=== PATIENT | male | born 1965 | race Caucasian/White ===

== ENCOUNTER 2017-03-02 02:42 | Observation (INO) | payer SELFPAY ==
[2017-03-02 02:42] VITALS: BMI 20.9
[2017-03-02 03:02] VITALS: BP 109/75; PULSE 90; RESP 16; TEMP 98; O2SAT 99
--- NOTE | 2017-03-02 03:30 | ED PDOC ---
HPI: Psych/Substance Abuse Time Seen by Provider: 03/02/17 02:49 Chief Complaint (Nursing): Alcohol Ingestion Chief Complaint (Provider): Alcohol Intoxication ED Caveat: Intoxicated History Per: Patient History/Exam Limitations: intoxication Onset/Duration Of Symptoms: Days (x 1) Current Symptoms Are (Timing): Still Present Modifying Factor(s): Alcohol Additional History Per: EMS Additional Complaint(s): 51 y/o male was brought the ED by EMS for alcohol intoxication. Patient was found publicly intoxicated. Denies any physical complaints. Of note: patient has a left periorbital ecchymosis that he was seen for and received full workup including a CAT scan in a recent visit. PMD: Unknown Past Medical History Reviewed: Historical Data, Nursing Documentation, Vital Signs, Unable To Obtain Vital Signs: Last Vital Signs Temp 98.0 F 03/02/17 02:54 Pulse 90 03/02/17 02:54 Resp 16 03/02/17 02:54 BP 109/75 03/02/17 02:54 Pulse Ox 99 03/02/17 02:54 - Medical History PMH: Seizures ( PER EMS) Denies: HIV, Chronic Kidney Disease - Family History Family History: States: Unknown Family Hx - Immunization History Hx Tetanus Toxoid Vaccination: No Hx Influenza Vaccination: No Hx Pneumococcal Vaccination: No - Home Medications Home Medications: Ambulatory Orders Medication Instructions Recorded levETIRAcetam [Keppra] 500 mg PO BID #60 tab 06/22/15 No Known Home Med 02/26/17 - Allergies Allergies/Adverse Reactions: Allergies Allergy/AdvReac Type Severity Reaction Status Date / Time No Known Allergies Allergy Verified 10/14/16 20:26 Review of Systems Review Of Systems: ROS cannot be obtained secondary to pt's inabilty to answer questions. Physical Exam - Reviewed Nursing Documentation Reviewed: Yes Vital Signs Reviewed: Yes - Physical Exam Appears: Positive for: Non-toxic, No Acute Distress Head Exam: Positive for: ATRAUMATIC, NORMAL INSPECTION, NORMOCEPHALIC Skin: Positive for: Normal Color, Warm, Dry Eye Exam: Positive for: Normal appearance, EOMI, PERRL, Other (left periorbital ecchymosis, old per patient and records) ENT: Positive for: Normal ENT Inspection Neck: Positive for: Normal, Painless ROM Cardiovascular/Chest: Positive for: Regular Rate, Rhythm. Negative for: Murmur Respiratory: Positive for: Normal Breath Sounds. Negative for: Respiratory Distress Gastrointestinal/Abdominal: Positive for: Normal Exam, Bowel Sounds, Soft. Negative for: Tenderness Back: Positive for: Normal Inspection. Negative for: L CVA Tenderness, R CVA Tenderness, Vertebral Tenderness Extremity: Positive for: Normal ROM. Negative for: Pedal Edema, Deformity Neurologic/Psych: Positive for: Alert (Awake), Gait (Unsteady), Other (Slurred speech) - ECG O2 Sat by Pulse Oximetry: 99 (RA) Pulse Ox Interpretation: Normal Medical Decision Making Medical Decision Making: Time: 3:11 Initial Impression: 51 y/o male with alcohol intoxication Initial Plan: --Alcohol Serum Stat --Accucheck --Pending sobriety --Patient admitted to ED OBS for alcohol intoxication *Check ED OBS for further documentation Scribe Attestation: Documented by Adalberto Broussard, acting as a scribe for Jose David Walls MD Provider Scribe Attestation: All medical record entries made by the Scribe were at my direction and personally dictated by me. I have reviewed the chart and agree that the record accurately reflects my personal performance of the history, physical exam, medical decision making, and the department course for this patient. I have also personally directed, reviewed, and agree with the discharge instructions and disposition. ED OBSERVATION Date of observation admission: 03/02/17 Time of observation admission: 03:10 - Observation admission statement Patient is being placed in observation because:: Alcohol intoxication - Goals of Observation Goals of observation are:: Clinical sobriety - Progress Note Progress Note: Time: 3:10 --Patient is resting. Vitals are stable. Time: 4:40 --Patient is resting comfortably with stable vitals. Time: 6:10 --Patient is currently resting and vitals are stable. Time: 6:30 --Patient is alert, awake, oriented x3 with a steady gait and fluent speech. --Patient is medically stable for discharge home Clinical Impression: Alcohol Intoxication Disposition - Clinical Impression Clinical Impression: Alcohol abuse with intoxication - Patient ED Disposition Is Patient to be Admitted: No Counseled Patient/Family Regarding: Diagnosis, Need For Followup - Disposition Disposition: Routine/Home Disposition Time: 03:10 Condition: STABLE
== END 2017-03-02 06:38 | disposition home or self-care (01) ==
LOC: H.ER 02:42 → H.EROBSV 04:49
PROVIDERS: ADMIT Emergency Medicine; ATTEND Emergency Medicine
DX: F10.129 Alcohol abuse with intoxication, unspecified (principal); S00.12XA Contusion of left eyelid and periocular area, initial encounter; Z79.899 Other long term (current) drug therapy; R56.9 Unspecified convulsions; Y90.8 Blood alcohol level of 240 mg/100 ml or more
CPT/HCPCS: 82948; 99282; G0378; G0480

== ENCOUNTER 2017-05-30 17:48 | Emergency (ER) | payer MEDICAID, OTHER ==
[2017-05-30 17:48] VITALS: BMI 20.9
--- NOTE | 2017-05-30 18:28 | ED PDOC ---
HPI: Psych/Substance Abuse Time Seen by Provider: 05/30/17 18:00 Chief Complaint (Nursing): Alcohol Ingestion Chief Complaint (Provider): Alcohol Ingestion History Per: EMS History/Exam Limitations: intoxication Onset/Duration Of Symptoms: Days (x1) Current Symptoms Are (Timing): Still Present Additional Complaint(s): Santy Jiménez is a 52 year old male who was brought to the ED by EMS due to alcohol intoxication. According to EMS, [place] Patient is known to EMS and to ED for alcohol abuse and homelessness. Patient is intoxicated and unable to give any history. Past Medical History Reviewed: Historical Data, Nursing Documentation, Vital Signs Vital Signs: Last Vital Signs Temp 97.8 F 05/30/17 17:53 Pulse 98 H 05/30/17 17:53 Resp 16 05/30/17 17:53 BP 107/70 05/30/17 17:53 Pulse Ox 99 05/30/17 17:53 - Medical History PMH: Seizures ( PER EMS) Denies: HIV, Chronic Kidney Disease - Family History Family History: States: Unknown Family Hx - Immunization History Hx Tetanus Toxoid Vaccination: No Hx Influenza Vaccination: No Hx Pneumococcal Vaccination: No - Home Medications Home Medications: Ambulatory Orders Medication Instructions Recorded levETIRAcetam [Keppra] 500 mg PO BID #60 tab 06/22/15 No Known Home Med 02/26/17 - Allergies Allergies/Adverse Reactions: Allergies Allergy/AdvReac Type Severity Reaction Status Date / Time No Known Allergies Allergy Verified 10/14/16 20:26 Review of Systems Review Of Systems: ROS cannot be obtained secondary to pt's inabilty to answer questions. (alcohol intoxication) Physical Exam - Reviewed Nursing Documentation Reviewed: Yes Vital Signs Reviewed: Yes - Physical Exam Appears: Positive for: No Acute Distress (dissheveled and unkempt) Head Exam: Positive for: ATRAUMATIC, NORMOCEPHALIC Skin: Positive for: Warm, Dry Eye Exam: Positive for: PERRL, Conjunctival injection ENT: Positive for: Pharynx Is (clear) Neck: Positive for: Painless ROM, Supple Cardiovascular/Chest: Positive for: Regular Rate, Rhythm, Chest Non Tender. Negative for: Murmur Respiratory: Positive for: Normal Breath Sounds. Negative for: Wheezing Gastrointestinal/Abdominal: Positive for: Soft. Negative for: Tenderness Back: Positive for: Normal Inspection. Negative for: Decreased ROM Extremity: Positive for: Normal ROM, Pedal Edema (bilateral ankle and feet). Negative for: Deformity Lymphatic: Negative for: Adenopathy Neurologic/Psych: Positive for: Other (deeply sleepy but arousable to painful stimuli). Negative for: Alert, Oriented, Motor/Sensory Deficits - ECG O2 Sat by Pulse Oximetry: 99 (RA) Pulse Ox Interpretation: Normal Medical Decision Making Medical Decision Making: Time: 18:03 Initial Impression: Alcohol intoxication --Alcohol serum --Glucose, blood, POC --Pulse OX continuous --Reevaluation Scribe Attestation: Documented by Thomas Pierre acting as a scribe for Agueda Conde MD. Scribe Attestation: All medical record entries made by the Scribe were at my direction and personally dictated by me. I have reviewed the chart and agree that the record accurately reflects my personal performance of the history, physical exam, medical decision making, and the department course for this patient. I have also personally directed, reviewed, and agree with the discharge instructions and disposition. Disposition - Clinical Impression Clinical Impression: Alcohol use - Disposition Disposition: Transfer of Care Disposition Time: 00:00 Condition: STABLE Print Language: CHINESE Patient Signed Over To: Austen Barton Handoff Comments: Pending Sobriety and final ER disposition
[2017-05-30 19:34] VITALS: RESP 18
--- NOTE | 2017-05-31 01:25 | ED PDOC ---
- ECG O2 Sat by Pulse Oximetry: 95 Medical Decision Making Medical Decision Making: Time: 00:00 --Patient was endorsed to provider by Dr. Agueda Conde. Pending clinical sobriety. Time: 516 --Upon provider reevaluation, patient is awake, alert, medically stable and requires no further treatment in the ED at this time. Patient will be discharged home. Counseling was provided and all questions were answered regarding diagnosis. There is agreement to discharge plan. Return if symptoms persist or worsen. Clinical Impression: Alcohol use Scribe Attestation: Documented by Mamta Andres, acting as a scribe for Austen Barton MD. Provider Scribe Attestation: All medical record entries made by the Scribe were at my direction and personally dictated by me. I have reviewed the chart and agree that the record accurately reflects my personal performance of the history, physical exam, medical decision making, and the department course for this patient. I have also personally directed, reviewed, and agree with the discharge instructions and disposition. Disposition Counseled Patient/Family Regarding: Diagnosis - Clinical Impression Clinical Impression: Alcohol use - POA Present On Arrival: None - Disposition Referrals: Alcoholics Anonymous [Outside] Disposition: Routine/Home Disposition Time: 05:17 Condition: STABLE Instructions: Alcohol Intoxication (DC) Forms: [employer] (Croatian) Print Language: IRAQI
[2017-05-31 05:17] VITALS: BP 105/60; PULSE 97; TEMP 98.5
[2017-05-31 16:20] VITALS: O2SAT 99
== END 2017-05-31 05:30 | disposition home or self-care (01) ==
LOC: H.ER 17:48
DX: F10.129 Alcohol abuse with intoxication, unspecified (principal); Z59.0 Homelessness

== ENCOUNTER 2017-07-25 08:21 | Inpatient (IN) | payer OTHER ==
[2017-07-25 08:22] VITALS: BMI 20.9
[2017-07-25 09:14] LABS: BASO # 0.2 K/uL (0.0-0.2); BASO % 2.8 % (0.0-2.0); EOS # 0.9 K/uL (0.0-0.7); EOS % 14.8 % (0.0-4.0); HEMOGLOBIN 13.7 g/dL (12.0-18.0); LYMPH # 1.3 K/uL (1.0-4.3); LYMPH % 21.1 % (20.0-40.0); MEAN CELL VOLUME 88.2 fl (80.0-94.0); MEAN CORPUSCULAR HEMOGLOBIN 29.9 pg (27.0-31.0); MEAN CORPUSCULAR HGB CONC 33.9 g/dL (33.0-37.0); MEAN PLATELET VOLUME 8.1 fl (7.2-11.7); MONO # 0.4 K/uL (0.0-0.8); MONO % 6.8 % (0.0-10.0); NEUT # 3.3 K/uL (1.8-7.0); NEUT % 54.5 % (50.0-75.0); NRBC % 0.2 % (0.0-0.0); RBC 4.58 Mil/uL (4.40-5.90); RED CELL DISTRIBUTION WIDTH 16.3 % (11.5-14.5); WHITE BLOOD COUNT 6.1 K/uL (4.8-10.8)
--- NOTE | 2017-07-25 09:17 | ED PDOC ---
HPI: Seizure Time Seen by Provider: 07/25/17 08:31 Chief Complaint (Nursing): Seizure Chief Complaint (Provider): Seizure History Per: Patient, EMS History/Exam Limitations: no limitations Recent Seizure Activity Began: Unknown Length Of Seizures (Duration): Unknown Additional Complaint(s): Santy Jiménez is a 52 year old male, with a past medical history of alcohol withdrawal seizures, who was brought to the emergency department via EMS for seizure onset prior to arrival. Per EMS, they were called by roommate who reported he was seizing. Patient was found in a shed behind an abandoned house. He denies any medical complaints. PMD: None provided. Past Medical History Reviewed: Historical Data, Nursing Documentation, Vital Signs Vital Signs: Last Vital Signs Temp 98.2 F 07/25/17 11:41 Pulse 98 H 07/25/17 11:41 Resp 16 07/25/17 11:41 BP 121/73 07/25/17 11:41 Pulse Ox 96 07/25/17 11:41 - Medical History PMH: Seizures ( PER EMS) Denies: HIV, Chronic Kidney Disease - Surgical History Surgical History: No Surg Hx - Family History Family History: States: Unknown Family Hx - Social History Current smoker - smoking cessation education provided: Yes (light smoker <10 cigarettes daily) Alcohol: > 2 Drinks/Day Drugs: Denies - Immunization History Hx Tetanus Toxoid Vaccination: No Hx Influenza Vaccination: No Hx Pneumococcal Vaccination: No - Home Medications Home Medications: Ambulatory Orders Medication Instructions Recorded levETIRAcetam [Keppra] 500 mg PO BID #60 tab 06/22/15 No Known Home Med 02/26/17 - Allergies Allergies/Adverse Reactions: Allergies Allergy/AdvReac Type Severity Reaction Status Date / Time No Known Allergies Allergy Verified 10/14/16 20:26 Review of Systems ROS Statement: Except As Marked, All Systems Reviewed And Found Negative Neurological: Positive for: Seizures Physical Exam - Reviewed Nursing Documentation Reviewed: Yes Vital Signs Reviewed: Yes - Physical Exam Appears: Positive for: Non-toxic Head Exam: Positive for: ATRAUMATIC, NORMAL INSPECTION, NORMOCEPHALIC Skin: Positive for: Normal Color, Warm, Dry Eye Exam: Positive for: Normal appearance, EOMI, PERRL Neck: Positive for: Painless ROM, Supple Cardiovascular/Chest: Positive for: Regular Rate, Rhythm. Negative for: Murmur Respiratory: Positive for: Normal Breath Sounds. Negative for: Respiratory Distress Gastrointestinal/Abdominal: Positive for: Normal Exam, Soft. Negative for: Tenderness, Guarding, Rebound Back: Positive for: Normal Inspection. Negative for: L CVA Tenderness, R CVA Tenderness, Vertebral Tenderness Extremity: Positive for: Normal ROM. Negative for: Deformity, Swelling Neurologic/Psych: Positive for: Alert, Oriented (x3). Negative for: Motor/ Sensory Deficits - Laboratory Results Result Diagrams: 07/25/17 08:50 07/25/17 08:50 - ECG Interpretation Of ECG: ST @ 104, no ST-T changes. O2 Sat by Pulse Oximetry: 95 (RA) Pulse Ox Interpretation: Normal - Critical Care Total Time (In Min): 45 Medical Decision Making Medical Decision Making: Initial Impression: Seizure Initial Plan: --EKG --Alcohol serum --CMP --CBC w/ differential --Banana Bag MVI/VITB --Reevaluation 09:10 --Called to bedside, patient actively seizing, placed on breather and gave Ativan 2mg. Scribe Attestation: Documented by Naren Mcpherson, acting as a scribe for Humera Gotti MD Provider Scribe Attestation: All medical record entries made by the Scribe were at my direction and personally dictated by me. I have reviewed the chart and agree that the record accurately reflects my personal performance of the history, physical exam, medical decision making, and the department course for this patient. I have also personally directed, reviewed, and agree with the discharge instructions and disposition. Disposition - Clinical Impression Clinical Impression: Alcohol withdrawal seizure - Patient ED Disposition Is Patient to be Admitted: Yes - Disposition Referrals: Provider CARRIE, [Primary Care Provider] - Disposition Time: 11:46 Condition: STABLE Forms: [employer] (Bengali) - Pt Status Changed To: Hospital Disposition Of: Inpatient - Admit Certification Admit to Inpatient:: After my assessment, the patient will require hospitalization for at least two midnights. This is because of the severity of symptoms shown, intensity of services needed, and/or the medical risk in this patient being treated as an outpatient. - POA Present On Arrival: None
[2017-07-25 09:21] LABS: ALB/GLOB RATIO 1.2 (1.0-2.1); ALBUMIN 4.3 g/dL (3.5-5.0); ALT/SGPT 138 U/L (21-72); AST/SGOT 132 U/L (17-59); BLOOD UREA NITROGEN 11 mg/dl (9-20); CALCIUM 9.4 mg/dL (8.4-10.2); GFR AFRICAN-AMERICAN > 60; GFR NON-AFRICAN AMERICAN > 60
[2017-07-25] MEDS ORDERED: Multivitamin (MVI) 10 ML, Thiamine 100 MG, Folic Acid 1 MG in Dextrose 5%/0.45% NS 1,00... IV ONE (09:30)
--- NOTE | 2017-07-25 12:24 | CT ---
PROCEDURE: CT HEAD WITHOUT CONTRAST. HISTORY: Seizure COMPARISON: None available. TECHNIQUE: Axial computed tomography images were obtained through the head/brain without intravenous contrast. Radiation dose: Total exam DLP = 1277.5 mGy-cm. This CT exam was performed using one or more of the following dose reduction techniques: Automated exposure control, adjustment of the mA and/or kV according to patient size, and/or use of iterative reconstruction technique. FINDINGS: HEMORRHAGE: No acute parenchymal, subarachnoid or extra-axial hemorrhage. BRAIN: No evidence of large acute infarct. No obvious parenchymal nor extra-axial mass or collection identified on this noncontrast study. Suspect minimal chronic periventricular white matter ischemic changes Mild generalized volume loss. VENTRICLES: No obstructive hydrocephalus. CALVARIUM: No obvious acute calvarial fractures. Re- demonstrated are soft tissue density changes in the right parietal scalp with some overlying skin thickening possibly due to chronic scarring however concomitant mild focal area of scalp swelling not excluded. Questionable minimal left keyposterior superior parietal scalp swelling. PARANASAL SINUSES: Mild mucoperiosteal inflammatory changes seen within maxillary antra. MASTOID AIR CELLS: Unremarkable as visualized. No inflammatory changes. OTHER FINDINGS: None. IMPRESSION: No acute intracranial hemorrhage. Suspect minimal chronic periventricular white matter ischemic changes. Mild generalized volume loss. Re- demonstrated are soft tissue density changes in the right parietal scalp with some overlying skin thickening possibly due to chronic scarring however concomitant mild focal area of scalp swelling not excluded. Questionable minimal left keyposterior superior parietal scalp swelling.
--- NOTE | 2017-07-25 13:34 | RAD ---
HISTORY: Seizure COMPARISON: 09/08/2014 FINDINGS: LUNGS: No active pulmonary disease. PLEURA: No significant pleural effusion identified, no pneumothorax apparent. CARDIOVASCULAR: No radiographic findings to suggest acute or significant cardiovascular disease. OSSEOUS STRUCTURES: No significant abnormalities. VISUALIZED UPPER ABDOMEN: Normal. OTHER FINDINGS: None. IMPRESSION: No active disease. No significant interval change compared to the prior examination(s).
[2017-07-25 15:33] LABS: BARBITURATES, UR NEGATIVE (NEGATIVE); BENZODIAZEPINES, UR NEGATIVE (NEGATIVE); OPIATES, UR NEGATIVE (NEGATIVE); PHENCYCLIDINE, UR NEGATIVE (NEGATIVE)
[2017-07-25] MEDS ORDERED: Pneumococcal 23-Valent Vaccine IM ONE (16:14)
[2017-07-25] MEDS ORDERED: Influenza Vaccine 18yr & older 0.5 ML/45 MCG SYR IM ONE (16:16)
[2017-07-25] MEDS ORDERED: Permethrin 5% CREAM TOP ONE (20:52)
[2017-07-26 06:25] LABS: ALB/GLOB RATIO 1.3 (1.0-2.1); ALBUMIN 4.2 g/dL (3.5-5.0); ALT/SGPT 116 U/L (21-72); AST/SGOT 91 U/L (17-59); BLOOD UREA NITROGEN 14 mg/dl (9-20); CALCIUM 9.3 mg/dL (8.4-10.2); GFR AFRICAN-AMERICAN > 60; GFR NON-AFRICAN AMERICAN > 60
[2017-07-26] MEDS ORDERED: Potassium Chloride 20 mEq ER Tab PO ONE (08:57)
[2017-07-26] MEDS ORDERED: Permethrin 5% CREAM TOP ONE (09:20)
--- NOTE | 2017-07-26 12:50 | CP.PCM.CON ---
History of Present Illness - History of Present Illness History of Present Illness: Mr. Jiménez is a 52-year-old man, who reports that he was recently in [facility] after having a seizure. He has had 3 other seizures in his life. Last night, he states that he was sleeping and woke up to find people taking him in the EMS vehicle. He was witnessed having a seizure. According to the patient, he drinks several times a week, but denies heavy alcohol use. He denies drinking daily. However, there is report of alcohol withdrawal seizures in the past. The patient denied tongue biting, injury, urinary/bowel incontinence with this episode. Review of Systems - Review of Systems All systems: reviewed and no additional remarkable complaints except Past Patient History - Infectious Disease Hx of Infectious Diseases: None - Past Medical History & Family History Past Medical History?: Yes - Past Social History Smoking Status: Heavy Smoker > 10 Cigarettes Daily - CARDIAC Hx Cardiac Disorders: No - PULMONARY Hx Respiratory Disorders: No - NEUROLOGICAL Hx Neurological Disorder: Yes Hx Seizures: Yes - HEENT Hx HEENT Problems: No - RENAL Hx Chronic Kidney Disease: No - ENDOCRINE/METABOLIC Hx Endocrine Disorders: No - HEMATOLOGICAL/ONCOLOGICAL Hx Blood Disorders: No Hx AIDS: No Hx Human Immunodeficiency Virus (HIV): No - INTEGUMENTARY Hx Dermatological Problems: No - MUSCULOSKELETAL/RHEUMATOLOGICAL Hx Musculoskeletal Disorders: No Hx Falls: Yes - GASTROINTESTINAL Hx Gastrointestinal Disorders: No - GENITOURINARY/GYNECOLOGICAL Hx Genitourinary Disorders: No - PSYCHIATRIC Hx Psychophysiologic Disorder: No Hx Substance Use: No - SURGICAL HISTORY Hx Surgeries: No - ANESTHESIA Hx Anesthesia: Yes Hx Anesthesia Reactions: No Hx Malignant Hyperthermia: No Has any member of the family had a problem w/ anesthesia?: No Meds Allergies/Adverse Reactions: Allergies Allergy/AdvReac Type Severity Reaction Status Date / Time No Known Allergies Allergy Verified 10/14/16 20:26 - Medications Medications: Current Medications Chlordiazepoxide (Librium) 5 mg PO Q8 [facility] Last Admin: 07/26/17 09:44 Dose: 5 mg Folic Acid (Folic Acid) 1 mg PO DAILY [facility] Last Admin: 07/26/17 09:44 Dose: 1 mg Thiamine HCl (Vitamin B1 Tab) 100 mg PO DAILY [facility] Last Admin: 07/26/17 09:44 Dose: 100 mg Physical Exam - Constitutional Appears: Well - Head Exam Head Exam: ATRAUMATIC, NORMAL INSPECTION, NORMOCEPHALIC - Eye Exam Eye Exam: EOMI, Normal appearance, PERRL - ENT Exam ENT Exam: Mucous Membranes Moist, Normal Exam - Neck Exam Neck exam: Positive for: Normal Inspection - Respiratory Exam Respiratory Exam: Clear to Auscultation Bilateral, NORMAL BREATHING PATTERN - Cardiovascular Exam Cardiovascular Exam: REGULAR RHYTHM, +S1, +S2 - Rectal Exam Rectal Exam: Deferred - Extremities Exam Extremities exam: Positive for: normal inspection - Neurological Exam Neurological exam: Alert, CN II-XII Intact, Normal Gait, Oriented x3, Reflexes Normal - Psychiatric Exam Psychiatric exam: Normal Affect, Normal Mood - Skin Skin Exam: Dry, Intact, Normal Color, Warm Results - Vital Signs Recent Vital Signs: Last Vital Signs Temp 98.4 F 07/26/17 12:30 Pulse 76 07/26/17 12:30 Resp 18 07/26/17 12:30 BP 102/66 07/26/17 12:30 Pulse Ox 96 07/26/17 12:30 - Labs Result Diagrams: 07/25/17 08:50 07/26/17 04:31 Labs: Laboratory Results - last 24 hr 07/25/17 07/26/17 14:57 04:31 Sodium 137 Potassium 3.2 L Chloride 98 Carbon Dioxide 25 Anion Gap 17 BUN 14 Creatinine 0.6 L Est GFR ( Amer) > 60 Est GFR (Non-Af Amer) > 60 Random Glucose 81 Calcium 9.3 Total Bilirubin 1.2 AST 91 H D ALT 116 H Alkaline Phosphatase 74 Total Protein 7.5 Albumin 4.2 Globulin 3.3 Albumin/Globulin Ratio 1.3 Urine Opiates Screen Negative Urine Methadone Screen Negative Ur Barbiturates Screen Negative Ur Phencyclidine Scrn Negative Ur Amphetamines Screen Negative U Benzodiazepines Scrn Negative U Oth Cocaine Metabols Negative U Cannabinoids Screen Negative - Impressions Impression: Scalp swelling on CT head on the right. Assessment & Plan (1) Seizure disorder Assessment and Plan: The patient has now had 4 lifetime seizures and there is concern with high degree of likelihood that he will have a 5th, if he is not on seizure prophylaxis. Therefor, I recommend starting Keppra 500 mg BID. He was unable to obtain the MRI due to head lice. An EEG is recommended for further evaluation and may be done as an outpatient. Thank you. Status: Acute
--- NOTE | 2017-07-26 16:39 | CP.PCM.HP ---
History of Present Illness - History of Present Illness History of Present Illness: CC: Seizure Disorder. 52 y/o M, admitted to [facility] due to an episode of Seizure Disorder prior to arrival to ED. PMHx of alcohol withdrawal seizure, Homeless, as per roommate, he witnessed Pt was seizing and he called EMS who found Pt in an abandoned house and was brought him to ER, [facility], [place] for evaluation and Tx. Unknown length of seizure activity. Pt denied any injury. While in the ER, Pt had another seizure activity, with foamy mouth, unresponsive /diaphoretic. Worsening symptoms: Multiple admissions to hospital for Hx of alcohol abuse. Not in compliance the the seizure medication. Also was found with Body Lice in head and all the bed sheet, with malodor. Pt was placed in Isolation as per protocol. Aggravated factor: On arrival to the ED, Pt did not remember Hx of illness. CT Head: No acute intracranial hemorrhage. Mild focal area of scalp swelling, questionable minimal left thompson posterior superior parietal scalp swelling. CXR: No active disease. . Present on Admission - Present on Admission Any Indicators Present on Admission: No Review of Systems - Review of Systems All systems: reviewed and no additional remarkable complaints except (HPI) - Cardiovascular Cardiovascular: Other (negative) Past Patient History - Infectious Disease Hx of Infectious Diseases: None - Past Medical History & Family History Past Medical History?: Yes Pertinent Family History: Unknown - Past Social History Smoking Status: Heavy Smoker > 10 Cigarettes Daily Alcohol: > 2 Drinks/Day Drugs: Denies - CARDIAC Hx Cardiac Disorders: No - PULMONARY Hx Respiratory Disorders: No - NEUROLOGICAL Hx Neurological Disorder: Yes Hx Seizures: Yes - HEENT Hx HEENT Problems: No - RENAL Hx Chronic Kidney Disease: No - ENDOCRINE/METABOLIC Hx Endocrine Disorders: No - HEMATOLOGICAL/ONCOLOGICAL Hx Blood Disorders: No Hx AIDS: No Hx Human Immunodeficiency Virus (HIV): No - INTEGUMENTARY Hx Dermatological Problems: No - MUSCULOSKELETAL/RHEUMATOLOGICAL Hx Musculoskeletal Disorders: No Hx Falls: Yes - GASTROINTESTINAL Hx Gastrointestinal Disorders: No - GENITOURINARY/GYNECOLOGICAL Hx Genitourinary Disorders: No - PSYCHIATRIC Hx Psychophysiologic Disorder: No Hx Substance Use: No - SURGICAL HISTORY Hx Surgeries: No - ANESTHESIA Hx Anesthesia: Yes Hx Anesthesia Reactions: No Hx Malignant Hyperthermia: No Has any member of the family had a problem w/ anesthesia?: No Meds Home Medications: Home Medication List Medication Instructions Recorded Confirmed Type Folic Acid 1 mg PO DAILY #30 tab 07/29/17 Rx Meclizine [Meclizine*] 25 mg PO Q12 #60 tab 07/29/17 Rx Thiamine [Vitamin B1 Tab] 100 mg PO DAILY #30 tab 07/29/17 Rx levETIRAcetam [Keppra] 500 mg PO BID #60 tab 07/29/17 Rx Allergies/Adverse Reactions: Allergies Allergy/AdvReac Type Severity Reaction Status Date / Time No Known Allergies Allergy Verified 10/14/16 20:26 Physical Exam - Constitutional Appears: No Acute Distress - Head Exam Head Exam: NORMAL INSPECTION - Eye Exam Eye Exam: PERRL - ENT Exam ENT Exam: Normal Exam - Neck Exam Neck exam: Positive for: Normal Inspection - Respiratory Exam Respiratory Exam: NORMAL BREATHING PATTERN - Cardiovascular Exam Cardiovascular Exam: REGULAR RHYTHM - GI/Abdominal Exam GI & Abdominal Exam: Normal Bowel Sounds, Soft - Back Exam Back exam: NORMAL INSPECTION - Neurological Exam Neurological exam: Alert, Oriented x3 - Psychiatric Exam Psychiatric exam: Anxious - Skin Skin Exam: Warm Results - Vital Signs Recent Vital Signs: Last Vital Signs Temp 98.4 F 07/26/17 12:30 Pulse 76 07/26/17 12:30 Resp 18 07/26/17 12:30 BP 102/66 07/26/17 12:30 Pulse Ox 96 07/26/17 12:30 reviewed Jimena - Labs Result Diagrams: 07/29/17 04:25 07/29/17 04:25 Labs: Laboratory Results - last 24 hr 07/26/17 04:31 Sodium 137 Potassium 3.2 L Chloride 98 Carbon Dioxide 25 Anion Gap 17 BUN 14 Creatinine 0.6 L Est GFR ( Amer) > 60 Est GFR (Non-Af Amer) > 60 Random Glucose 81 Calcium 9.3 Total Bilirubin 1.2 AST 91 H D ALT 116 H Alkaline Phosphatase 74 Total Protein 7.5 Albumin 4.2 Globulin 3.3 Albumin/Globulin Ratio 1.3 reviewed JRadhaPRadha - Imaging and Cardiology Chest x-ray Status: Report reviewed by me (Jimena) Assessment & Plan (1) Seizure disorder Status: Acute Priority: High (2) History of ETOH abuse Status: Chronic Priority: High (3) Lice infestation Status: Acute - Assessment and Plan (Free Text) Plan: F/U Brain MRI was not done due to head lice, f/u Head MRA, Neck MRA, Continue Kepra, Librium, Folic Acid,Permethrim , PT eval, Neurology consult apreciated. - Date & Time Date: 07/26/17 Time: 12:30
--- NOTE | 2017-07-26 19:19 | CARD ---
APPROVED REPORT EKG Measurement Heart [id number] VT [id number] [id number] <Conclusion> Sinus tachycardia Otherwise normal ECG
[2017-07-27 07:09] LABS: BLOOD UREA NITROGEN 13 mg/dl (9-20); CALCIUM 9.4 mg/dL (8.4-10.2); GFR AFRICAN-AMERICAN > 60; GFR NON-AFRICAN AMERICAN > 60
--- NOTE | 2017-07-27 12:13 | MRI ---
PROCEDURE: MRI BRAIN WITHOUT CONTRAST HISTORY: seizure COMPARISON: Comparison is made with the previous study dated 09/22/2013 TECHNIQUE: Multiplanar, multisequence MR images of the brain were obtained without intravenous contrast enhancement. FINDINGS: HEMORRHAGE: None DWI: No evidence of an acute or early subacute infarction. BRAIN PARENCHYMA: No mass effect or edema. Slzf-of-[id number] atrophy is noted. VENTRICLES: Unremarkable. No hydrocephalus. CRANIUM: Unremarkable. ORBITS: Grossly unremarkable. PARANASAL SINUSES/MASTOIDS: Clear VASCULAR SYSTEM: Skull base flow voids intact. OTHER FINDINGS: None. IMPRESSION: There is no evidence of acute pathology or os mass lesion in the brain. Nzdl-[id number] atrophy.
--- NOTE | 2017-07-27 14:51 | MRI ---
PROCEDURE: Magnetic Resonance Angiography Brain HISTORY: seizure COMPARISON: None available. TECHNIQUE: 3D time of flight MR angiography of the intracranial arteries was performed. Rotating maximum intensity projection images were generated. FINDINGS: INTERNAL CAROTID ARTERIES: Unremarkable. The skull base, petrous, cavernous and supraclinoid segments are bilaterally widely patient. ANTERIOR CEREBRAL ARTERIES: Absence of the right A1 is noted. Both anterior cerebral arteries supplied by left circulation through left A1. Smaller distal branches unremarkable, as visualized. MIDDLE CEREBRAL ARTERIES: Unremarkable. M1 and M2 segments are widely patent. Perisylvian branches grossly symmetric. POSTERIOR CIRCULATION: Basilar Artery: Unremarkable. Distal Vertebral Arteries: Unremarkable. Posterior Cerebral Arteries: Unremarkable. Posterior Inferior Cerebellar Arteries: Unremarkable. ANEURYSM/ VASCULAR MALFORMATIONS: None. OTHER FINDINGS: None. IMPRESSION: Absence of the right A1. Otherwise unremarkable MRA of the brain.
--- NOTE | 2017-07-27 15:38 | CP.PCM.PN ---
Subjective - Date & Time of Evaluation Date of Evaluation: 07/27/17 Time of Evaluation: 15:10 - Subjective Subjective: F/U Seizure Disorder. complains of dizziness on and off , no seizures Objective - Vital Signs/Intake and Output Vital Signs (last 24 hours): Temp Pulse Resp BP Pulse Ox 98.2 F 79 16 105/66 97 07/27/17 12:00 07/27/17 12:00 07/27/17 12:00 07/27/17 12:00 07/27/17 12:00 - Medications Medications: Current Medications Chlordiazepoxide (Librium) 5 mg PO Q8 [facility] Last Admin: 07/27/17 10:30 Dose: 5 mg Folic Acid (Folic Acid) 1 mg PO DAILY [facility] Last Admin: 07/27/17 10:30 Dose: 1 mg Levetiracetam (Keppra) 500 mg PO BID [facility] Last Admin: 07/27/17 10:30 Dose: 500 mg Thiamine HCl (Vitamin B1 Tab) 100 mg PO DAILY [facility] Last Admin: 07/27/17 10:30 Dose: 100 mg - Labs Labs: 07/25/17 08:50 07/27/17 06:09 - Constitutional Appears: No Acute Distress - Head Exam Head Exam: NORMAL INSPECTION - Eye Exam Eye Exam: PERRL - ENT Exam ENT Exam: Normal Exam - Neck Exam Neck Exam: Normal Inspection - Respiratory Exam Respiratory Exam: NORMAL BREATHING PATTERN - Cardiovascular Exam Cardiovascular Exam: REGULAR RHYTHM - GI/Abdominal Exam GI & Abdominal Exam: Soft, Normal Bowel Sounds - Extremities Exam Extremities Exam: Normal Inspection - Back Exam Back Exam: NORMAL INSPECTION - Neurological Exam Neurological Exam: Alert, Oriented x3. absent: Motor Sensory Deficit - Psychiatric Exam Psychiatric exam: Anxious - Skin Skin Exam: Warm Assessment and Plan (1) Seizure disorder Status: Acute (2) History of ETOH abuse Status: Chronic
[2017-07-27] MEDS: Diphenhydramine 1% CREAM TOP PRN (17:19)
[2017-07-28] MEDS: Diphenhydramine 1% CREAM TOP PRN ×3 (00:19→18:47)
--- NOTE | 2017-07-28 08:55 | CP.PCM.PN ---
Subjective - Date & Time of Evaluation Date of Evaluation: 07/28/17 Time of Evaluation: 08:53 - Subjective Subjective: Mr. Jiménez was seen and examined at the bedside. He is alert, oriented in all spheres. He denies any headache, nausea, or vomiting, but claims of dizziness with the room spinning with each movement of his head and aggravated with change of position. He further states of the dizziness started yesterday, his systolic blood pressure was on the upper 90, Currently, its 116/61. There was no untoward events overnight. Objective - Vital Signs/Intake and Output Vital Signs (last 24 hours): Temp Pulse Resp BP Pulse Ox 97.5 F L 64 16 118/61 97 07/28/17 08:11 07/28/17 08:11 07/28/17 08:11 07/28/17 08:11 07/28/17 08:11 - Medications Medications: Current Medications Chlordiazepoxide (Librium) 5 mg PO Q8 [facility] Last Admin: 07/28/17 00:12 Dose: 5 mg Folic Acid (Folic Acid) 1 mg PO DAILY [facility] Last Admin: 07/27/17 10:30 Dose: 1 mg Levetiracetam (Keppra) 500 mg PO BID [facility] Last Admin: 07/27/17 16:03 Dose: 500 mg Thiamine HCl (Vitamin B1 Tab) 100 mg PO DAILY [facility] Last Admin: 07/27/17 10:30 Dose: 100 mg Zinc Acetate/Diphenhydramine (Benadryl 1% Zinc Acetate -0.1%) 1 applic TOP Q8 PRN PRN Reason: Itching / Pruritus Last Admin: 07/28/17 00:19 Dose: 1 applic - Labs Labs: 07/25/17 08:50 07/27/17 06:09 - Constitutional Appears: No Acute Distress - Head Exam Head Exam: NORMAL INSPECTION - Neurological Exam Neurological Exam: Alert, Awake, Oriented x3 Neuro motor strength exam: Left Upper Extremity: 5, Right Upper Extremity: 5, Left Lower Extremity: 5, Right Lower Extremity: 5 Additional comments: He is able to follow commands, sensation remains intact, but with dizziness with positional change. Assessment and Plan (1) Seizure disorder Assessment & Plan: Case discussed with Dr. Edouard, continue all current medical regimen. Pending EEG. Status: Acute (2) Dizziness Assessment & Plan: Case discussed with Dr. Edouard, recommend to do CTA of the head and neck to rule out VBI and start on meclizine 25 mg PO Q 12. Recommend physical therapy for vestiular rehab. Status: Acute
--- NOTE | 2017-07-28 10:51 | MRI ---
PROCEDURE: MR Angiography of the neck without contrast HISTORY: seizure COMPARISON: None available. TECHNIQUE: Contrast enhanced and [id number] angiography of the neck was performed. Rotating 3D maximum intensity projection images of the cervical carotid and vertebral arteries were generated. FINDINGS: RIGHT CAROTID ARTERIES: Common Carotid Artery: Normal. Carotid Bifurcation: Normal. Internal Carotid Artery:Normal. External Carotid Artery (proximal branches): Normal. LEFT CAROTID ARTERIES: Common Carotid Artery: Normal. Carotid Bifurcation: Normal. Internal Carotid Artery:Normal. External Carotid Artery (proximal branches): Normal. VERTEBRAL ARTERIES: Right Vertebral Artery: Normal. Left Vertebral Artery: Normal. OTHER FINDINGS: None. IMPRESSION: Normal MR Angiography of the neck.
--- NOTE | 2017-07-28 17:58 | CP.PCM.PN ---
Subjective - Date & Time of Evaluation Date of Evaluation: 07/28/17 - Subjective Subjective: F/U seizure Disorder. dizziness Objective - Vital Signs/Intake and Output Vital Signs (last 24 hours): Temp Pulse Resp BP Pulse Ox 98.2 F 63 17 109/67 98 07/28/17 15:52 07/28/17 15:52 07/28/17 15:52 07/28/17 15:52 07/28/17 15:52 - Medications Medications: Current Medications Chlordiazepoxide (Librium) 5 mg PO Q8 [facility] Last Admin: 07/28/17 09:24 Dose: 5 mg Folic Acid (Folic Acid) 1 mg PO DAILY [facility] Last Admin: 07/28/17 09:40 Dose: 1 mg Levetiracetam (Keppra) 500 mg PO BID [facility] Last Admin: 07/28/17 09:40 Dose: 500 mg Meclizine HCl (Antivert) 25 mg PO Q12 [facility] Last Admin: 07/28/17 09:40 Dose: 25 mg Thiamine HCl (Vitamin B1 Tab) 100 mg PO DAILY [facility] Last Admin: 07/28/17 09:40 Dose: 100 mg Zinc Acetate/Diphenhydramine (Benadryl 1% Zinc Acetate -0.1%) 1 applic TOP Q8 PRN PRN Reason: Itching / Pruritus Last Admin: 07/28/17 09:40 Dose: 1 applic - Labs Labs: 07/25/17 08:50 07/27/17 06:09 - Constitutional Appears: No Acute Distress - Head Exam Head Exam: NORMAL INSPECTION - Eye Exam Eye Exam: PERRL - ENT Exam ENT Exam: Normal Exam - Neck Exam Neck Exam: Normal Inspection - Respiratory Exam Respiratory Exam: NORMAL BREATHING PATTERN - Cardiovascular Exam Cardiovascular Exam: REGULAR RHYTHM - GI/Abdominal Exam GI & Abdominal Exam: Soft, Normal Bowel Sounds - Extremities Exam Extremities Exam: Normal Inspection - Back Exam Back Exam: NORMAL INSPECTION - Neurological Exam Neurological Exam: Alert, Oriented x3 - Psychiatric Exam Psychiatric exam: Anxious - Skin Skin Exam: Warm Assessment and Plan (1) Seizure disorder Status: Acute (2) History of ETOH abuse Status: Chronic (3) Lice infestation Status: Acute - Assessment and Plan (Free Text) Plan: Head MRA absesnce A1 , neck MRA neg , continue Keppra
[2017-07-29 06:12] LABS: HEMOGLOBIN 13.9 g/dL (12.0-18.0); MEAN CELL VOLUME 89.9 fl (80.0-94.0); MEAN CORPUSCULAR HEMOGLOBIN 29.3 pg (27.0-31.0); MEAN CORPUSCULAR HGB CONC 32.6 g/dL (33.0-37.0); RBC 4.74 Mil/uL (4.40-5.90); RED CELL DISTRIBUTION WIDTH 16.3 % (11.5-14.5); WHITE BLOOD COUNT 6.1 K/uL (4.8-10.8)
[2017-07-29 06:35] LABS: ALB/GLOB RATIO 1.2 (1.0-2.1); ALBUMIN 4.2 g/dL (3.5-5.0); ALT/SGPT 90 U/L (21-72); AST/SGOT 62 U/L (17-59); BLOOD UREA NITROGEN 16 mg/dl (9-20); CALCIUM 9.4 mg/dL (8.4-10.2); GFR AFRICAN-AMERICAN > 60; GFR NON-AFRICAN AMERICAN > 60; MAGNESIUM 1.9 MG/DL (1.6-2.3)
[2017-07-29] MEDS: Diphenhydramine 1% CREAM TOP PRN (09:26)
--- NOTE | 2017-07-29 10:04 | CP.PCM.PN ---
Subjective - Date & Time of Evaluation Date of Evaluation: 07/29/17 Time of Evaluation: 10:02 - Subjective Subjective: Mr. Jiménez was seen and examined at the bedside. He is alert, oriented in all spheres. He denies any headache, blurred vision, diplopia, nausea, or vomiting. He further states that his dizziness improved. He is able to follow simple commands. He further states of occasional itchiness which he is currently on medication. There was no untoward events overnight. Objective - Vital Signs/Intake and Output Vital Signs (last 24 hours): Temp Pulse Resp BP Pulse Ox 98.1 F 86 18 97/60 L 97 07/29/17 07:43 07/29/17 07:43 07/29/17 07:43 07/29/17 07:43 07/29/17 07:43 - Medications Medications: Current Medications Folic Acid (Folic Acid) 1 mg PO DAILY [facility] Last Admin: 07/29/17 09:18 Dose: 1 mg Levetiracetam (Keppra) 500 mg PO BID [facility] Last Admin: 07/29/17 09:17 Dose: 500 mg Meclizine HCl (Antivert) 25 mg PO Q12 [facility] Last Admin: 07/29/17 09:17 Dose: 25 mg Thiamine HCl (Vitamin B1 Tab) 100 mg PO DAILY [facility] Last Admin: 07/29/17 09:17 Dose: 100 mg Zinc Acetate/Diphenhydramine (Benadryl 1% Zinc Acetate -0.1%) 1 applic TOP Q8 PRN PRN Reason: Itching / Pruritus Last Admin: 07/29/17 09:26 Dose: 1 applic - Labs Labs: 07/29/17 04:25 07/29/17 04:25 - Constitutional Appears: No Acute Distress - Head Exam Head Exam: NORMAL INSPECTION - Neurological Exam Neurological Exam: Alert, Awake, Oriented x3 Neuro motor strength exam: Left Upper Extremity: 5, Right Upper Extremity: 5, Left Lower Extremity: 5, Right Lower Extremity: 5 Additional comments: He is alert, oriented, follows simple commands, and sensation remains intact. Assessment and Plan (1) Seizure disorder Assessment & Plan: Case discussed with Dr. Perez, continue all current medical regimen. Status: Acute (2) Dizziness Assessment & Plan: Case discussed with Dr. Perez, continue all current medical and physical therapies. Pending CTA of the head and neck. Recommend increase PO hydration to alleviate dizziness. Status: Acute
[2017-07-29] MEDS ORDERED: Iodixanol 320 MG/ML 100 ML BOTTLE IV ONE (15:01)
[2017-07-29] MEDS ORDERED: Sodium Chloride 0.9% 50 ML IV ONE (15:02)
--- NOTE | 2017-07-29 16:09 | CP.PCM.PN ---
Subjective - Date & Time of Evaluation Date of Evaluation: 07/29/17 Time of Evaluation: 13:40 - Subjective Subjective: F/U Seizure Dizziness Objective - Vital Signs/Intake and Output Vital Signs (last 24 hours): Temp Pulse Resp BP Pulse Ox 98.4 F 73 18 102/61 99 07/29/17 12:07 07/29/17 12:07 07/29/17 12:07 07/29/17 12:07 07/29/17 12:07 - Medications Medications: Current Medications Folic Acid (Folic Acid) 1 mg PO DAILY [facility] Last Admin: 07/29/17 09:18 Dose: 1 mg Levetiracetam (Keppra) 500 mg PO BID [facility] Last Admin: 07/29/17 09:17 Dose: 500 mg Meclizine HCl (Antivert) 25 mg PO Q12 [facility] Last Admin: 07/29/17 09:17 Dose: 25 mg Thiamine HCl (Vitamin B1 Tab) 100 mg PO DAILY [facility] Last Admin: 07/29/17 09:17 Dose: 100 mg Zinc Acetate/Diphenhydramine (Benadryl 1% Zinc Acetate -0.1%) 1 applic TOP Q8 PRN PRN Reason: Itching / Pruritus Last Admin: 07/29/17 09:26 Dose: 1 applic - Labs Labs: 07/29/17 04:25 07/29/17 04:25 - Constitutional Appears: No Acute Distress - Head Exam Head Exam: NORMAL INSPECTION - Eye Exam Eye Exam: PERRL - ENT Exam ENT Exam: Normal Exam - Neck Exam Neck Exam: Normal Inspection - Respiratory Exam Respiratory Exam: NORMAL BREATHING PATTERN - Cardiovascular Exam Cardiovascular Exam: REGULAR RHYTHM - GI/Abdominal Exam GI & Abdominal Exam: Soft, Normal Bowel Sounds - Extremities Exam Extremities Exam: Normal Inspection - Back Exam Back Exam: NORMAL INSPECTION - Neurological Exam Neurological Exam: Alert, Oriented x3. absent: Motor Sensory Deficit - Psychiatric Exam Psychiatric exam: Anxious - Skin Skin Exam: Normal Color, Warm Assessment and Plan (1) Seizure disorder Status: Acute (2) History of ETOH abuse Status: Chronic (3) Lice infestation Status: Acute - Assessment and Plan (Free Text) Plan: continue Keppra , f/u CTA Head and Neck , attempt to discharge if Negative
--- NOTE | 2017-07-29 16:20 | CT ---
PROCEDURE: CT Angiography of the Brain. HISTORY: to r/o VBI COMPARISON: None available. TECHNIQUE: CT angiography of the intracranial arteries was performed. Coronal and sagittal maximum intensity projection reformated images were generated. This CT exam was performed using one or more of the following dose reduction techniques: Automated exposure control, adjustment of the mA and/or kV according to patient size, and/or use of iterative reconstruction technique. FINDINGS: INTERNAL CEREBRAL ARTERIES: Unremarkable. The skull base, petrous, cavernous and supraclinoid segments are bilaterally widely patent. 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 Left A1 and bilateral A2 KAREN segments appear widely patent without significant stenosis with smaller distal branches unremarkable, as visualized. MIDDLE CEREBRAL ARTERIES: Unremarkable. M1 and M2 segments are widely patent. Perisylvian branches grossly symmetric. POSTERIOR CIRCULATION: Basilar Artery: Unremarkable. Vertebrobasilar circulation appears left dominant. Distal Vertebral Arteries: Unremarkable. Posterior Cerebral Arteries: Unremarkable. Posterior Inferior Cerebellar Arteries: Unremarkable. NECK CTA: Common Carotid arteries: The bilateral common carotid appear widely patent from their origins to their bifurcations with no significant stenosis appreciated. No evidence to suggest common carotid artery dissection. Mild right carotid bulbar atherosclerosis is identified. Internal Carotid arteries: No significant stenosis is appreciated throughout the cervical internal carotid artery segments bilaterally and there is no evidence of dissection either. Trace left and [id number] proximal right ICA atherosclerosis is appreciated without significant stenosis resulting. External Carotid arteries: Appear unremarkable bilaterally. Vertebral arteries: The bilateral vertebral arteries appear normal in caliber from their origins to their junction with the basilar artery. Vertebrobasilar system appears dominant. No significant stenosis or definite pattern of dissection. Incidentally, the bilateral subclavian arteries are widely patent as well as the brachiocephalic artery. ANEURYSM/ VASCULAR MALFORMATIONS: None. OTHER FINDINGS: None. 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 Remainder of the head CT angiogram is unremarkable. Right carotid bulbar and bilateral proximal ICA atherosclerosis without significant stenosis resulting.
[2017-07-29] MEDS ORDERED: Permethrin 5% CREAM TOP ONE (20:45)
--- NOTE | 2017-07-30 09:11 | EEG ---
ELECTROENCEPHALOGRAM REPORT DATE: 07/29/2017 This is an EEG required using 15 electrodes placed by the International 10-20 electrode spacing system. Continuous seizure monitoring was done with spike detection system. All electrodes were referenced to A1/A2 and P1/P2 electrodes. Background rhythm consisted of normal posterior dominant rhythm that was 8 to 10 Hz, reactive, symmetric, and attenuates to eye opening. There is a profoundly increased amount of beta present in all allen. There were no focal epileptiform discharges. There was no sleep captured. There was no focal slowing. There were no clinical or subclinical seizures. Activation maneuver does not produce any abnormal activity. IMPRESSION: This is a normal awake and drowsy electroencephalogram; however, the presence of increased beta indicates medication effect. Clinical correlation is required. Manolo Perez MD
--- NOTE | 2017-07-30 15:14 | CP.PCM.PN ---
Subjective - Date & Time of Evaluation Date of Evaluation: 07/30/17 Time of Evaluation: 10:50 - Subjective Subjective: F/U Seizure Objective - Vital Signs/Intake and Output Vital Signs (last 24 hours): Temp Pulse Resp BP Pulse Ox 98.7 F 106 H 18 92/62 L 96 07/30/17 12:14 07/30/17 12:14 07/30/17 12:14 07/30/17 12:14 07/30/17 12:14 - Medications Medications: Current Medications Folic Acid (Folic Acid) 1 mg PO DAILY [facility] Last Admin: 07/30/17 08:10 Dose: 1 mg Levetiracetam (Keppra) 500 mg PO BID [facility] Last Admin: 07/30/17 08:10 Dose: 500 mg Meclizine HCl (Antivert) 25 mg PO Q12 [facility] Last Admin: 07/30/17 08:10 Dose: 25 mg Thiamine HCl (Vitamin B1 Tab) 100 mg PO DAILY [facility] Last Admin: 07/30/17 08:10 Dose: 100 mg Zinc Acetate/Diphenhydramine (Benadryl 1% Zinc Acetate -0.1%) 1 applic TOP Q8 PRN PRN Reason: Itching / Pruritus Last Admin: 07/29/17 09:26 Dose: 1 applic - Labs Labs: 07/29/17 04:25 07/29/17 04:25 - Constitutional Appears: No Acute Distress - Head Exam Head Exam: NORMAL INSPECTION - Eye Exam Eye Exam: PERRL - ENT Exam ENT Exam: Normal Exam - Neck Exam Neck Exam: Normal Inspection - Respiratory Exam Respiratory Exam: NORMAL BREATHING PATTERN - Cardiovascular Exam Cardiovascular Exam: REGULAR RHYTHM - GI/Abdominal Exam GI & Abdominal Exam: Soft, Normal Bowel Sounds - Extremities Exam Extremities Exam: Normal Inspection - Back Exam Back Exam: NORMAL INSPECTION - Neurological Exam Neurological Exam: Alert, Oriented x3 - Psychiatric Exam Psychiatric exam: Anxious - Skin Skin Exam: Warm Assessment and Plan (1) Seizure disorder Status: Acute (2) History of ETOH abuse Status: Chronic (3) Lice infestation Status: Acute
[2017-07-30 15:33] VITALS: BP 98/65; PULSE 73; RESP 20; TEMP 98.1; O2SAT 98
--- NOTE | 2017-07-30 20:24 | CP.PCM.DIS ---
Provider - Provider Date of Admission: 07/25/17 11:46 Attending physician: Agustín Paul MD Primary care physician: Provider TBD Diagnosis - Discharge Diagnosis (1) Seizure disorder Status: Acute Priority: High (2) History of ETOH abuse Status: Chronic Priority: High (3) Lice infestation Status: Acute Hospital Course - Lab Results Lab Results: Most Recent Lab Values WBC 6.1 K/uL (4.8-10.8) 07/29/17 04:25 RBC 4.74 Mil/uL (4.40-5.90) 07/29/17 04:25 Hgb 13.9 g/dL (12.0-18.0) 07/29/17 04:25 Hct 42.6 % (35.0-51.0) 07/29/17 04:25 MCV 89.9 fl (80.0-94.0) 07/29/17 04:25 MCH 29.3 pg (27.0-31.0) 07/29/17 04:25 MCHC 32.6 g/dL (33.0-37.0) L 07/29/17 04:25 RDW 16.3 % (11.5-14.5) H 07/29/17 04:25 Plt Count 272 K/uL (130-400) 07/29/17 04:25 MPV 8.1 fl (7.2-11.7) 07/25/17 08:50 Neut % (Auto) 54.5 % (50.0-75.0) 07/25/17 08:50 Lymph % (Auto) 21.1 % (20.0-40.0) 07/25/17 08:50 Desha % (Auto) 6.8 % (0.0-10.0) 07/25/17 08:50 Eos % (Auto) 14.8 % (0.0-4.0) H 07/25/17 08:50 Baso % (Auto) 2.8 % (0.0-2.0) H 07/25/17 08:50 Neut # (Auto) 3.3 K/uL (1.8-7.0) 07/25/17 08:50 Lymph # (Auto) 1.3 K/uL (1.0-4.3) 07/25/17 08:50 Desha # (Auto) 0.4 K/uL (0.0-0.8) 07/25/17 08:50 Eos # (Auto) 0.9 K/uL (0.0-0.7) H 07/25/17 08:50 Baso # (Auto) 0.2 K/uL (0.0-0.2) 07/25/17 08:50 Sodium 139 mmol/l (132-148) 07/29/17 04:25 Potassium 4.1 MMOL/L (3.6-5.0) 07/29/17 04:25 Chloride 101 mmol/L (98-107) 07/29/17 04:25 Carbon Dioxide 23 mmol/L (22-30) 07/29/17 04:25 Anion Gap 19 (10-20) 07/29/17 04:25 BUN 16 mg/dl (9-20) 07/29/17 04:25 Creatinine 0.7 mg/dl (0.8-1.5) L 07/29/17 04:25 Est GFR ( Amer) > 60 07/29/17 04:25 Est GFR (Non-Af Amer) > 60 07/29/17 04:25 POC Glucose (mg/dL) 80 mg/dL (65-110) 07/25/17 08:51 Random Glucose 89 mg/dL (75-110) 07/29/17 04:25 Calcium 9.4 mg/dL (8.4-10.2) 07/29/17 04:25 Magnesium 1.9 MG/DL (1.6-2.3) 07/29/17 04:25 Total Bilirubin 0.6 mg/dl (0.2-1.3) 07/29/17 04:25 AST 62 U/L (17-59) H D 07/29/17 04:25 ALT 90 U/L (21-72) H D 07/29/17 04:25 Alkaline Phosphatase 64 U/L (38-126) 07/29/17 04:25 Total Protein 7.7 G/DL (6.3-8.2) 07/29/17 04:25 Albumin 4.2 g/dL (3.5-5.0) 07/29/17 04:25 Globulin 3.5 gm/dL (2.2-3.9) 07/29/17 04:25 Albumin/Globulin Ratio 1.2 (1.0-2.1) 07/29/17 04:25 Urine Opiates Screen Negative (NEGATIVE) 07/25/17 14:57 Urine Methadone Screen Negative (NEGATIVE) 07/25/17 14:57 Ur Barbiturates Screen Negative (NEGATIVE) 07/25/17 14:57 Ur Phencyclidine Scrn Negative (NEGATIVE) 07/25/17 14:57 Ur Amphetamines Screen Negative (NEGATIVE) 07/25/17 14:57 U Benzodiazepines Scrn Negative (NEGATIVE) 07/25/17 14:57 U Oth Cocaine Metabols Negative (NEGATIVE) 07/25/17 14:57 U Cannabinoids Screen Negative (NEGATIVE) 07/25/17 14:57 Alcohol, Quantitative < 10 mg/dl (0-10) 07/25/17 08:50 Discharge Exam - Head Exam Head Exam: NORMAL INSPECTION Discharge Plan - Discharge Medications Prescriptions: Folic Acid 1 mg PO DAILY #30 tab levETIRAcetam [Keppra] 500 mg PO BID #60 tab Meclizine [Meclizine*] 25 mg PO Q12 #60 tab Thiamine [Vitamin B1 Tab] 100 mg PO DAILY #30 tab - Follow Up Plan Condition: STABLE Disposition: HOME/ ROUTINE Instructions: Seizures, Adult (DC), Dizziness, Nonvertigo, (DC), Alcohol Abuse and Alcoholism (DC) Additional Instructions: follow up with pmd in 1 week Referrals: Provider TBD, [Primary Care Provider] - Telly Connors MD [Family Provider] - Flo Edouard MD [Medical Doctor] -
== END 2017-07-30 16:22 | disposition home or self-care (01) | DRG 751 ==
LOC: H.ER 08:21 → SUPCPDRO 08:21 → H.ERHOLD 11:46 → H.TEL 15:08
PROVIDERS: ADMIT Internal Medicine Pulmonary Disease; ATTEND Internal Medicine Pulmonary Disease
PROC: 3E0234Z Introduction of Serum, Toxoid and Vaccine into Muscle, Percutaneous Approach (ICD-10-PCS; 2017-07-25)
PROC: HZ52ZZZ Individual Psychotherapy for Substance Abuse Treatment, Cognitive-Behavioral (ICD-10-PCS; principal; 2017-07-26)
DX: F10.239 Alcohol dependence with withdrawal, unspecified (principal); G40.802 Other epilepsy, not intractable, without status epilepticus; B85.0 Pediculosis due to Pediculus humanus capitis; B85.1 Pediculosis due to Pediculus humanus corporis; F17.210 Nicotine dependence, cigarettes, uncomplicated; Z23 Encounter for immunization; Z59.0 Homelessness

== ENCOUNTER 2017-10-19 17:32 | Emergency (ER) | payer SELFPAY ==
[2017-10-19 17:32] VITALS: BMI 20.9
--- NOTE | 2017-10-19 18:23 | ED PDOC ---
HPI: Trauma/Fall - HPI Time Seen by Provider: 10/19/17 17:41 Chief Complaint (Nursing): Trauma History Per: Patient History/Exam Limitations: no limitations Injury Occurred (Timing): Days Ago: (4) Additional Complaint(s): 52 yo M reports sustaining head trauma, today c/o headache and neck pain when he fell down the stairs 4 days ago. Otherwise: (-) loss of consciousness, (-) nausea, (-) vomiting, (-) severe headache, (-) other injury, (-) back pain, (-) subjective neurologic deficit, (-) asa/anticoagulants. Has no history of prior significant head injury. Past Medical History Vital Signs: Last Vital Signs Temp 97.4 F L 10/19/17 17:39 Pulse 103 H 10/19/17 17:39 Resp 18 10/19/17 17:39 BP 115/79 10/19/17 17:39 Pulse Ox 99 10/19/17 17:39 - Medical History PMH: Seizures Denies: HIV, Chronic Kidney Disease - Family History Family History: States: Unknown Family Hx - Immunization History Hx Tetanus Toxoid Vaccination: No Hx Influenza Vaccination: No Hx Pneumococcal Vaccination: No - Home Medications Home Medications: Ambulatory Orders Medication Instructions Recorded Folic Acid 1 mg PO DAILY #30 tab 07/29/17 Meclizine [Meclizine*] 25 mg PO Q12 #60 tab 07/29/17 Thiamine [Vitamin B1 Tab] 100 mg PO DAILY #30 tab 07/29/17 levETIRAcetam [Keppra] 500 mg PO BID #60 tab 07/29/17 - Allergies Allergies/Adverse Reactions: Allergies Allergy/AdvReac Type Severity Reaction Status Date / Time No Known Allergies Allergy Verified 10/14/16 20:26 Review of Systems Constitutional: Negative for: Fever, Weakness, Malaise Cardiovascular: Negative for: Chest Pain, Palpitations, Edema Respiratory: Negative for: Cough, Shortness of Breath, Wheezing Gastrointestinal: Negative for: Nausea, Vomiting, Abdominal Pain Musculoskeletal: Positive for: Neck Pain. Negative for: Shoulder Pain, Back Pain Skin: Negative for: Rash, Lesions Neurological: Negative for: Weakness, Numbness, Incoordination Physical Exam - Physical Exam Comments: GENERALIZED APPEARANCE: Patient is AAO x 3 in mild painful distress. SKIN: Warm, dry; (-) cyanosis. HEAD: (-) swelling and tenderness, with no palpable bony defect. EYES: (-) conjunctival pallor, (-) scleral icterus, (-) nystagmus. ENMT: Mucous membranes moist. (-) Sweeney's sign. TMs: (-) blood. Nose: (-) tenderness, (-) rhinorrhea. No oral trauma. Pharynx clear. Airway patent: (-) stridor. NECK: (+) mild midline tenderness, (-) stiffness, (-) lymphadenopathy. CHEST AND RESPIRATORY: (-) chest wall tenderness. Lungs: (-) rales, (-) rhonchi , (-) wheezes; breath sounds equal bilaterally. HEART AND CARDIOVASCULAR: (-) irregularity; (-) murmur, (-) gallop. ABDOMEN AND GI: Soft; (-) tenderness. BACK: (-) tenderness. EXTREMITIES: (-) deformity, (-) tenderness, (-) limitation of motion. NEURO AND PSYCH: GCS=15. Mental status as above. Has full memory of episode; aligner : Pupils equal and reactive. EOMI. (-) facial asymmetry. Strength 5/5. No gross sensory deficits. - ECG O2 Sat by Pulse Oximetry: 99 Medical Decision Making Medical Decision Making: Plan : - CT head - CT C spine - Tylenol PO Patient at CT. PA called by oven technician, notified of appearance of multi level C spine fracture. PA immediately placed hard C collar on the patient's neck to stabilize him while he is in CT. CT images sent stat to [facility]. Patient escorted back to the ER with PA. Repeat neuro exam is completely normal. Patient remains AAOx3, aligner grossly intact, sensory intact and motor 5/5 to the b/l UE and LE are equal. ER MD made aware, case discussed with Dr. Conde in great detail. Neurosurgery consulted stat. Case d/w Dr. Moncada. He reviewed the CT of the C spine. As per Dr. Moncada, the patient will need a higher level of care not available at this facility, specific equipment necessary to stabilize his C spine fracture is not available at this hospital. He recommends transfer to [facility] in [place]. Patient made aware that he will need to be transferred to another facility for further care, likely [facility] in [place]. Risk and benefits to transfer was explained to the patient, risk - traffic delay, delay of transfer, worsening of current condition, benefits - access to a higher level of neurosurgical care, which the patient verbalize understanding and agreement with transfer. CT reading by [facility] still pending. IV , labs ordered. Patient medicated with morphine 4 mg and zofran [address] head w/o contrast : FINDINGS: Brain: Unremarkable. No hemorrhage. No significant white matter disease. No edema. Ventricles: Unremarkable. No ventriculomegaly. Bones/joints: Unremarkable. No acute fracture. Soft tissues: Right-sided scalp swelling. Sinuses: Unremarkable as visualized. No acute sinusitis. Mastoid air cells: Unremarkable as visualized. No mastoid effusion. IMPRESSION: Superficial scalp injury without intra-cranial hemorrhage or acute fracture. Dictated and Authenticated by: Rebecca Snow MD 10/19/2017 7:55 PM Eastern Time ([place] & [place]) CT C spine w/o contrast : FINDINGS: Vertebrae: There are acute fractures of both laminae and spinous process at C2, with 1 cm of anterolisthesis of C2-3. Discs/spinal canal/neural foramina: Multilevel moderate degenerative disc disease. Cord deformity with probable mild compression at the C2-3 level. Soft tissues: Unremarkable. Lung apices: Unremarkable as visualized. Other findings: Multilevel IMPRESSION: Bilateral acute laminar fractures at C2 also involving the spinous process, with 1 cm of anterolisthesis at C2-3. Cord deformity with probable mild compression at the C2-3 level. Cord injury not excluded. MRI may be considered for further evaluation as clinically indicated. Dictated and Authenticated by: Rebecca Snow MD 10/19/2017 8:03 PM Eastern Time ([place] & [place]) [facility] called to initiate transfer [phone], awaiting call back from Dr. Cao, trauma specialist. Case d/w Dr. Cao, she recommends transfer to neurosurgery as the patient has an isolated finding to his C spine due to an injury that is 4 days old. She will not accept the transfer. Neurosurgery at [facility] called, they are not interior design professional for spine. Ortho Dr. Moeller (interior design professional for spine at [facility]) called [phone]. Case d/w Dr. Moeller, agrees to accept the patient for transfer, she requests transfer ER to ER. ER MD Dr. Benoit at [facility] called and notified of transfer, he will anticipate for the patient's arrival. pile operator and BRICK MASON of the patient made aware of transfer. Arrangements made for transport via BLS. Disposition - Clinical Impression Clinical Impression: Fall, Head injury, Cervical spine fracture Counseled Patient/Family Regarding: Studies Performed, Diagnosis - Disposition Disposition: Other Institution (Patient ot be transferred to [facility] ER, admitting MD Dr. Moeller (ortho interior design professional for spine)) Disposition Time: 20:00 Condition: STABLE Forms: [facility] ([place])
[2017-10-19 20:03] VITALS: RESP 16
[2017-10-19 20:08] VITALS: O2SAT 99
[2017-10-19] MEDS ORDERED: Morphine 4 MG/ML VIAL ONE (20:14)
[2017-10-19 20:34] LABS: BASO # 0.1 K/uL (0.0-0.2); BASO % 1.1 % (0.0-2.0); EOS # 0.3 K/uL (0.0-0.7); EOS % 4.3 % (0.0-4.0); HEMOGLOBIN 14.4 g/dL (12.0-18.0); LYMPH # 1.8 K/uL (1.0-4.3); MEAN CELL VOLUME 89.7 fl (80.0-94.0); MEAN CORPUSCULAR HEMOGLOBIN 30.7 pg (27.0-31.0); MEAN CORPUSCULAR HGB CONC 34.2 g/dL (33.0-37.0); MEAN PLATELET VOLUME 7.6 fl (7.2-11.7); MONO # 0.7 K/uL (0.0-0.8); NEUT # 4.9 K/uL (1.8-7.0); NEUT % 62.6 % (50.0-75.0); RBC 4.69 Mil/uL (4.40-5.90); RED CELL DISTRIBUTION WIDTH 15.1 % (11.5-14.5); WHITE BLOOD COUNT 7.9 K/uL (4.8-10.8)
[2017-10-19 20:48] LABS: ALB/GLOB RATIO 1.2 (1.0-2.1); ALBUMIN 4.2 g/dL (3.5-5.0); ALT/SGPT 50 U/L (21-72); AST/SGOT 53 U/L (17-59); BLOOD UREA NITROGEN 14 mg/dl (9-20); CALCIUM 9.7 mg/dL (8.4-10.2); GFR AFRICAN-AMERICAN > 60; GFR NON-AFRICAN AMERICAN > 60; PROTHROMBIN TIME 10.8 Seconds (9.8-13.1)
[2017-10-19 23:09] VITALS: BP 130/80; PULSE 73; TEMP 98.4
--- NOTE | 2017-10-20 08:12 | CT ---
PROCEDURE: CT HEAD WITHOUT CONTRAST. HISTORY: trauma, fall 4 days ago COMPARISON: None available. TECHNIQUE: Axial computed tomography images were obtained through the head/brain without intravenous contrast. Radiation dose: Total exam DLP = mGy-cm. This CT exam was performed using one or more of the following dose reduction techniques: Automated exposure control, adjustment of the mA and/or kV according to patient size, and/or use of iterative reconstruction technique. FINDINGS: HEMORRHAGE: No intracranial hemorrhage. BRAIN: No mass effect or edema. No atrophy or chronic microvascular ischemic changes. VENTRICLES: Unremarkable. No hydrocephalus. CALVARIUM: Unremarkable. PARANASAL SINUSES: Unremarkable as visualized. No significant inflammatory changes. MASTOID AIR CELLS: Unremarkable as visualized. No inflammatory changes. OTHER FINDINGS: None. IMPRESSION: Normal CT of the Head.
--- NOTE | 2017-10-20 08:16 | CT ---
PROCEDURE: CT Cervical Spine without contrast HISTORY: trauma, fall COMPARISON: None available. TECHNIQUE: Axial computed tomography images were obtained of the cervical spine without the use of intravenous contrast. Coronal and sagittal reformatted images were created and reviewed. Radiation dose: Total exam DLP = mGy-cm. This CT exam was performed using one or more of the following dose reduction techniques: Automated exposure control, adjustment of the mA and/or kV according to patient size, and/or use of iterative reconstruction technique. FINDINGS: VERTEBRAE: Acute fracture of the laminae and spinous prostheses of C2 with 1 centimeter anterolisthesis at C2-3. DISCS/SPINAL CANAL/NEURAL FORAMINA: Multilevel degenerative disc disease with likely cord compression at C2-3. Discs heights are grossly preserved. PARASPINAL SOFT TISSUES: Unremarkable. OTHER FINDINGS: None. IMPRESSION: Acute fracture of the laminae and spinous prostheses of C2 with 1 centimeter anterolisthesis at C2-3.Multilevel degenerative disc disease with likely cord compression at C2-3.
== END 2017-10-19 23:10 | disposition short-term general hospital (02) ==
LOC: H.ER 17:32
DX: S09.90XA Unspecified injury of head, initial encounter (principal); W10.9XXA Fall (on) (from) unspecified stairs and steps, initial encounter; Y92.89 Other specified places as the place of occurrence of the external cause
CPT/HCPCS: 70450; 72125; 80053; 85025; 85610; 85730; 86850; 86900; 96374; 96375; 99285; G0480; J2270; J2405